=== PATIENT | male | born 1975 | race Caucasian/White ===

== ENCOUNTER 2022-03-22 16:09 | Emergency (ER) | payer BC, OTHER ==
[2022-03-22 17:04] VITALS: BP 180/78; PULSE 99; RESP 20; TEMP 98.2
--- NOTE | 2022-03-22 19:24 | ED ---
General Adult HPI - General Chief complaint: Skin/Abscess/Foreign Body Stated complaint: [facility]-L hand finger injury Source: patient, RN notes reviewed Mode of arrival: ambulatory Limitations: no limitations - History of Present Illness Initial comments: 46-year-old male presents to the emergency department for evaluation of puncture wound to the left index finger, onset 24 hours prior to arrival. Patient states the weld wire that punctured the skin was dirty. States wound was thoroughly cleansed and antibiotic spray was applied. Reports mild redness and swelling surrounding the site; does endorse some paresthesia. Denies loss of range of motion. No fever, chills, headache, or vomiting. TD up to date (2019). - Related Data Previous Rx's Medication Instructions Recorded Cephalexin [Keflex] 500 mg PO Q6HR 10 Days #40 cap 03/22/22 Allergies Allergy/AdvReac Type Severity Reaction Status Date / Time No Known Allergies Allergy Verified 03/22/22 17:04 Review of Systems ROS Statement: Those systems with pertinent positive or pertinent negative responses have been documented in the HPI. ROS Other: All systems not noted in ROS Statement are negative. Past Medical History Past Medical History: No Reported History, Diabetes Mellitus, Hypertension Additional Past Medical History / Comment(s): kidney stones History of Any Multi-Drug Resistant Organisms: None Reported Past Surgical History: No Surgical Hx Reported, Cholecystectomy Additional Past Surgical History / Comment(s): finger Past Psychological History: No Psychological Hx Reported Smoking Status: Light tobacco smoker Past Alcohol Use History: Occasional Past Drug Use History: None Reported General Exam Limitations: no limitations (Well-developed, well-nourished male in no acute distress. Initial temperature 98.2, pulse 99, is patient's 20, blood pressure 180/78, pulse ox 98% on room air.) General appearance: alert, in no apparent distress Respiratory exam: Present: normal lung sounds bilaterally. Absent: respiratory distress, wheezes, rales, rhonchi, stridor Cardiovascular Exam: Present: regular rate, normal rhythm, normal heart sounds. Absent: systolic murmur, diastolic murmur, rubs, gallop, clicks GI/Abdominal exam: Present: soft, normal bowel sounds. Absent: distended, tenderness, guarding, rebound, rigid Left Elbow exam: Present: normal inspection, full ROM. Absent: tenderness, swelling Forearm Wrist exam: Present: full ROM. Absent: tenderness, swelling Hand Wrist exam: Present: full ROM, tenderness (Mild tenderness upon palpation surrounding the distal phalanx ), swelling (Minimal swelling noted), erythema (Mild erythema surrounding the puncture site at the distal phalanx second digit palmar surface), other (Full flexion and extension intact) Neuro motor exam: Present: wrist extension intact, thumb opposition intact, thumb IP flexion intact, thumb adduction intact, fingers 2-5 abduction intact Vascular: Present: normal capillary refill, radial pulse. Absent: vascular compromise, Pallo Neurological exam: Present: alert, oriented X3, CN II-XII intact Psychiatric exam: Present: normal affect, normal mood Skin exam: Present: warm, dry, intact, normal color. Absent: rash Course Vital Signs 03/22/22 16:59 Temperature 98.2 F Pulse Rate 99 Respiratory 20 Rate Blood Pressure 180/78 O2 Sat by Pulse 98 Oximetry Medical Decision Making - Medical Decision Making 46-year-old male with a past medical history of diabetes and hypertension presents to the emergency department for evaluation of puncture wound to the distal phalanx of the second digit on the left hand. Injury occurred with contaminated weld wire approximately 24 hours ago. Upon exam, there is mild erythema surrounding puncture site. Flexion and extension are intact. Minimal discomfort and swelling. No fever or chills. Given patient's history of type 2 diabetes and source of injury, patient will be started on an antibiotic and instructed to follow up with his PCP for wound recheck. He is provided with a note for work to return tomorrow. Did to have wound clean and covered while present at work. Questions answered, patient verbalizes understanding and agrees with this plan. Attending: Vita. Disposition Clinical Impression: Puncture wound of finger of left hand Disposition: HOME SELF-CARE Condition: Stable Instructions (If sedation given, give patient instructions): Puncture Wound (ED) Additional Instructions: Plans wound twice daily with soap and water. Applied bacitracin and keep covered while at work. Take antibiotic as directed. Keep hand elevated while at rest. May take Tylenol or Motrin if needed for pain. Monitor carefully for signs of worsening infection including increased redness, pain, fever, and swelling. Return to the emergency department with any new, worsening, or concerning symptoms. Prescriptions: Cephalexin [Keflex] 500 mg PO Q6HR 10 Days #40 cap Is patient prescribed a controlled substance at d/c from ED?: No Referrals: Beverley Eddy MD [Primary Care Provider] - 1-2 days Forms: Work/School Release Time of Disposition: 19:34
[2022-03-22] MEDS ORDERED: CEPHALEXIN 500 MG CAP PO STA (19:30)
== END 2022-03-22 19:57 | disposition home or self-care (01) ==
LOC: EC 16:09
DX: S61.231A Puncture wound without foreign body of left index finger without damage to nail, initial encounter (principal); E11.9 Type 2 diabetes mellitus without complications; I10 Essential (primary) hypertension; F17.210 Nicotine dependence, cigarettes, uncomplicated; W31.1XXA Contact with metalworking machines, initial encounter
CPT/HCPCS: 99283

== ENCOUNTER → 2022-07-05 | Outpatient (CLI) | payer BC ==
--- NOTE | 2022-07-05 14:09 | CT ---
EXAMINATION TYPE: CT abdomen pelvis wo con CT DLP: 1711.5 mGycm, Automated exposure control for dose reduction was used. DATE OF EXAM: 07/05/2022 12:48 PM COMPARISON: None CLINICAL INDICATION:Male, 47 years old with history of N20.1 RT KIDNEY STONE; right flank pain TECHNIQUE: Standard CT of the abdomen and pelvis without IV or oral contrast. Lack of IV or oral co ntrast limits evaluation of solid and hollow organ viscera. Coronal and sagittal reformats were perfo rmed. FINDINGS: LOWER CHEST: Unremarkable ABDOMEN LIVER: Diffusely hypoattenuating parenchyma. GALLBLADDER AND BILE DUCTS: The gallbladder is surgically absent. No biliary ductal dilatation. PANCREAS: Unremarkable noncontrast appearance. SPLEEN: Unremarkable noncontrast appearance. ADRENAL GLANDS: Unremarkable noncontrast appearance. KIDNEYS AND URETERS: No evidence of hydronephrosis or renal calculus. There is a 6 mm calculus in the region of the distal right ureter (series 3, image 129). Exophytic right inferior pole lobulated 7.0 cm lesion with Hounsfield unit consistent with a simple cyst. No perinephric free fluid or fat stran ding. PELVIS BLADDER: Unremarkable REPRODUCTIVE: Coarse calcifications of the prostate gland are identified. ABDOMEN & PELVIS STOMACH AND BOWEL: Stomach and duodenum are unremarkable. No focal wall thickening. The appendix is w ithin normal limits. No evidence of bowel obstruction. PERITONEUM: No evidence of pneumoperitoneum or free fluid. VASCULATURE: No evidence of aortic aneurysm. Few pelvic phleboliths. MUSCULOSKELETAL: No acute osseous abnormalities. Mild multilevel degenerative changes visualized spin e. LYMPH NODES: No gross evidence for lymphadenopathy. SOFT TISSUE/ABDOMINAL WALL: Unremarkable IMPRESSION: 1. There appears to be 6 mm calculus in the region of the distal right ureter however there is no hyd roureteronephrosis. Alternatively this could represent a pelvic phlebolith abutting the ureter. 2. Right renal exophytic 7.0 cm cystic lesion with attenuation consistent with a simple cyst. This ca n be further confirmed with renal ultrasound. 3. Hepatic steatosis.
== END | disposition home or self-care (01) ==
LOC: RADCTMAIN 12:26
PROVIDERS: ATTEND Urology
DX: N20.1 Calculus of ureter (principal); N28.1 Cyst of kidney, acquired; K76.0 Fatty (change of) liver, not elsewhere classified
CPT/HCPCS: 74176

== ENCOUNTER → 2022-07-11 | Outpatient (CLI) | payer BC ==
[2022-07-11 13:39] LABS: Appearance,Urine Clear (Clear); Bilirubin,Urine Negative (Negative); Blood,Urine Negative (Negative); Color,Urine Yellow; Glucose,Urine (UA) Negative (Negative); Ketones,Urine Negative (Negative); Leukocyte Esterase,Urine Negative (Negative); Nitrite,Urine Negative (Negative); PH, Urine 5.5 (5.0-8.0); Protein,Urine Trace (Negative); Specific Gravity,Urine 1.029 (1.001-1.035); Urobilinogen,Urine <2.0 mg/dL (<2.0)
[2022-07-11 15:36] LABS: Basophils # (A) 0.06 X 10*3/uL (0.00-0.10); Basophils % (A) 0.8 %; Eosinophils # (A) 0.14 X 10*3/uL (0.04-0.35); Eosinophils % (A) 1.8 %; HGB 15.4 g/dL (13.0-17.0); Immature Grans, Automated 2.8 %; Lymphocytes % (A) 28.4 %; MCH 29.7 pg (27.0-32.0); MCHC 34.2 g/dL (32.0-37.0); MCV 86.7 fL (80.0-97.0); Mean Platelet Volume 11.9 fL (9.5-12.2); Monocytes # (A) 0.73 X 10*3/uL (0.20-1.00); Monocytes % (A) 9.4 %; NRBC Per 100 WBC 0 /100 WBCS (0.0-0.0); Neutrophils % (A) 56.8 %; Platelet Count 191 X 10*3/uL (140-440); RBC 5.19 X 10*6/uL (4.40-5.60); RDW 12.6 % (11.5-14.5); WBC 7.75 X 10*3/uL (4.50-10.00)
[2022-07-11 18:19] LABS: African American GFR (CKD) 119.1 (60.0-200.0); BUN/Creat Ratio 15.07 Ratio (12.00-20.00); Blood Urea Nitrogen 12.9 mg/dL (9.0-27.0); Calcium 9.6 mg/dL (8.7-10.3); Carbon Dioxide 27.7 mmol/L (20.0-27.5); Non-African American GFR(CKD) 102.7 (60.0-200.0); Potassium 5.2 mmol/L (3.5-5.5)
== END | disposition home or self-care (01) ==
LOC: LABWHC1 10:24
PROVIDERS: ATTEND Urology
DX: Z01.812 Encounter for preprocedural laboratory examination (principal); N20.1 Calculus of ureter; R31.29 Other microscopic hematuria
CPT/HCPCS: 36415; 80048; 81003; 85025; 87086

== ENCOUNTER → 2022-07-13 | Day surgery (SDC) | payer BC ==
[~2022-07-13] MED LIST: DEXAMETHASONE SOD PHOSPHATE 4 MG/ML 1 ML VIAL IV ONE; HYDROmorphone (PF) 1 MG/ML ONE; HYDROmorphone 0.5 MG/0.5 ML SYRINGE IVP PRN; KETOROLAC 15 MG/ML 1 ML VIAL IVP ONE; LACTATED RINGERS 1,000 ML IV SCH; LIDOCAINE 1% (10MG/ML) FOR IV START INTRADERMA PRN; LIDOCAINE 2% INJ 20 MG/ML (2 ML VIAL) ONE; MIDAZOLAM 2 MG/2 ML VIAL IV PRN; MIDAZOLAM 2 MG/2 ML VIAL ONE; ONDANSETRON 4 MG/2 ML VIAL IVP ONE; PROPOFOL 10 MG/ML 20 ML VIAL IV ONE; SUCCINYLCHOLINE CHLORIDE 200 MG/10 ML VIAL IV ONE; ceFAZolin 3 GM in SODIUM CHLORIDE 0.9% 100 ML IVPB PRN; fentaNYL (PF) 50 MCG/ML 2 ML AMP ONE
--- NOTE | 2022-07-13 07:52 | P.HPIHPCON ---
History of Present Illness H&P Date: 07/13/22 Chief Complaint: Right ureteral stone This is a 47-year-old male with history of a 6 mm right-sided ureteral stone, he has failed medical expulsive therapy. Discussed with him the option of doing a ureteroscopy with holmium laser. Discussed the risk which includes but not limited to bleeding, infection, injury to the ureter. Discussed also risk of anesthesia. He understood all the risk and agreed to proceed Consent for Procedure: I have explained the operation/procedure to the patient, including the risks, benefits, side effects, alternative therapies (including not receiving the proposed treatment or service), the likelihood of the patient achieving his/her goals, and potential recuperation problems for the procedure/sedation/analgesia, as well as any blood products, if indicated. I also explained to the patient the risks, benefits and side effects of the alternatives, as well as the risks related to not receiving the proposed procedure, care, treatment, or services. Past Medical History Past Medical History: Diabetes Mellitus, GERD/Reflux, Hypertension, Osteoarthritis (OA) Additional Past Medical History / Comment(s): kidney stones History of Any Multi-Drug Resistant Organisms: None Reported Past Surgical History: Cholecystectomy, Orthopedic Surgery Additional Past Surgical History / Comment(s): right index finger surg. Past Anesthesia/Blood Transfusion Reactions: No Reported Reaction Smoking Status: Light tobacco smoker Medications and Allergies Home Medications Medication Instructions Recorded Confirmed Type HYDROcodone/APAP 7.5-325MG [[place] 1 tab PO Q6HR PRN 07/11/22 07/11/22 History 7.5-325] Lisinopril-Hctz 20-12.5 mg 1 tab PO BID 07/11/22 07/11/22 History [Zestoretic 20-12.5] Omeprazole [PriLOSEC] 20 mg PO AC-BID PRN 07/11/22 07/11/22 History Terbinafine [LamISIL] 250 mg PO DAILY 07/11/22 07/11/22 History allopurinoL [Zyloprim] 100 mg PO DAILY 07/11/22 07/11/22 History glipiZIDE [Glucotrol] 5 mg PO AC-BID 07/11/22 07/11/22 History metFORMIN HCL [Glucophage] 500 mg PO DAILY 07/11/22 07/11/22 History Allergies Allergy/AdvReac Type Severity Reaction Status Date / Time No Known Allergies Allergy Verified 07/11/22 12:57 Surgical - Exam - General no distress, moderate pain - Eyes normal ocular movement, no pale - ENT normal nares, normal mucosa - Abdomen Abdomen: soft, non tender Assessment and Plan Assessment: OR for right-sided ureteroscopy, holmium laser lithotripsy, stone basketing and possible stent insertion
--- NOTE | 2022-07-13 12:16 | XR ---
EXAMINATION TYPE: XR KUB DATE OF EXAM: 07/13/2022 11:57 AM INDICATION: Patient age:Male; 47 years old; Reason for study: kidney stones; COMPARISON: CT 07/05/2022 TECHNIQUE: One radiographic view of the abdomen was obtained. FINDINGS: The bowel gas pattern is nonspecific without dilated loops of small or large bowel. There i s no evidence for organomegaly or pneumoperitoneum. The osseous structures are intact. Fecal materi al and gas are demonstrated throughout the colon and rectum. Right upper quadrant cholecystectomy cl ips. Calcification projecting over the right pelvis most consistent with prior obstructing calculus m easuring at least 5 mm. This appears to be in similar position to prior CT. IMPRESSION: Right lower quadrant obstructing calculus seen on CT 07/05/2022 is felt felt to be in a similar posit ion to prior CT. Confirmation with CT could be performed.
[2022-07-13 13:11] VITALS: RESP 16
[2022-07-13 13:11] LABS: Glucose,Whole Blood 146 mg/dL (70-110)
--- NOTE | 2022-07-13 15:57 | P.OP ---
Date of Procedure: 07/13/22 Preoperative Diagnosis: Right ureteral stone Postoperative Diagnosis: Same Procedure(s) Performed: Cystoscopy, right ureteroscopy, holmium laser lithotripsy, stone basketing and stent insertion Implants: 6-German by 26 cm stent in the right ureter left on a string Anesthesia: WING Surgeon: Eriberto Barakat Estimated Blood Loss (ml): 5 Pathology: other (right ureteral stone) Condition: stable Disposition: PACU Indications for Procedure: This is a 47-year-old male with history of a 6 mm right-sided ureteral stone, he has failed medical expulsive therapy. Discussed with him the option of doing a ureteroscopy with holmium laser. Discussed the risk which includes but not limited to bleeding, infection, injury to the ureter. Discussed also risk of anesthesia. He understood all the risk and agreed to proceed Description of Procedure: Patient brought to the operating room, general anesthesia was induced. He was prepped and draped in sterile fashion and placed in a dorsal lithotomy position. Cystoscopy fitted with a 21-German sheath was inserted per urethra, cystoscopy was performed which showed no abnormality within the bladder. Attention was then carried to the right ureteral orifice, a sensor wire was advanced through the ureteral orifice and the cystoscope was withdrawn with the wire in place. Next the semirigid ureteroscope was inserted through the urethra and advanced up the right ureteral orifice. A stone was encountered in the distal ureter. Using the holmium laser the stone was fragmented, sizable fragments were removed using the stone basket and sent for analysis. At this time the ureteroscope was advanced all the way up to the proximal ureter which showed no additional stones. Pullback ureteroscopy was performed which showed no injury to the ureter or any sizable fragments. Of note there was ureteral edema at the site of the stone. At this time a ureteral stent was passed over the wire, the proximal curl was visualized on fluoroscopy and the distal curl was visualized using the cystoscope. The bladder was emptied at the end of the case. The stent was left on a string and taped to the patient penis. Patient tolerated the procedure was taken to recovery in stable condition
--- NOTE | 2022-07-13 16:15 | FL ---
EXAMINATION TYPE: FL guidance operating room DATE OF EXAM: 07/13/2022 FLUOROSCOPY Fluoroscopy time of 5 seconds was used during urologic intervention with right-sided stent placement. 1 image/s document/s the procedure.
[2022-07-13 16:49] LABS: Glucose,Whole Blood 195 mg/dL (70-110)
[2022-07-13 16:53] VITALS: TEMP 97
[2022-07-13 16:58] VITALS: BP 118/67; PULSE 80
== END ==
LOC: OR 11:40
PROVIDERS: ATTEND Urology
DX: N20.1 Calculus of ureter (principal); E11.9 Type 2 diabetes mellitus without complications; Z79.84 Long term (current) use of oral hypoglycemic drugs; K21.9 Gastro-esophageal reflux disease without esophagitis; I10 Essential (primary) hypertension; M19.90 Unspecified osteoarthritis, unspecified site; F17.200 Nicotine dependence, unspecified, uncomplicated; Z98.890 Other specified postprocedural states; Z79.899 Other long term (current) drug therapy
CPT/HCPCS: 52356; 82365; 74018; C2625; C1758 ×4; C1894; C1769 ×3; J2250; J0330; J1100; J0690; J2405; J3010; J1170; J1885; J2704; J2001